=== PATIENT | male | born 1995 | race Caucasian/White ===

== ENCOUNTER 2020-04-13 14:18 | Inpatient (IN) | payer OTHER ==
[~2020-04-13] VITALS: Ht 172.7 cm; Wt 75.0 kg
[2020-04-13 15:41] LABS: HEMATOCRIT 44.4 % (42.0-52.0); HEMOGLOBIN 14.9 g/dl (13.5-17.5); MEAN CORPUSCULAR HEMOGLOBIN 29.4 pg (27.0-33.0); MEAN CORPUSCULAR HGB CONC 33.6 g/dl (32.0-36.5); MEAN CORPUSCULAR VOLUME 87.6 fl (80.0-96.0); PLATELET COUNT, AUTOMATED 197 10^3/uL (150-450); RED BLOOD COUNT 5.07 10^6/uL (4.30-6.10); WHITE BLOOD COUNT 7.5 10^3/uL (4.0-10.0)
[2020-04-13 16:17] LABS: ACETAMINOPHEN LEVEL < 2.0 UG/ML (10.0-30.0); ALBUMIN 4.6 GM/DL (3.2-5.2); ALT/SGPT 19 U/L (12-78); BILIRUBIN,DIRECT 0.1 MG/DL (0.0-0.2); BILIRUBIN,TOTAL 0.4 MG/DL (0.2-1.0); BLOOD UREA NITROGEN 16 MG/DL (7-18); CALCIUM LEVEL 9.2 MG/DL (8.5-10.1); CARBON DIOXIDE LEVEL 29 MEQ/L (21-32); CHLORIDE LEVEL 105 MEQ/L (98-107); CREATININE FOR GFR 0.97 MG/DL (0.70-1.30); ETHYL ALCOHOL (ETHANOL) < 0.003 % (0.000-0.010); GLOMERULAR FILTRATION RATE > 60.0 (>60); GLUCOSE, FASTING 99 MG/DL (70-100); POTASSIUM SERUM 3.9 MEQ/L (3.5-5.1); SALICYLATE LEVEL < 1.7 MG/DL (5.0-30.0); SODIUM LEVEL 140 MEQ/L (136-145); TOTAL PROTEIN 7.8 GM/DL (6.4-8.2)
[2020-04-13 18:33] LABS: RSV AMPLIFICATION NEGATIVE (NEGATIVE)
[2020-04-13 18:47] LABS: AMPHETAMINES LEVEL URINE NEGATIVE (NEGATIVE); BARBITURATES URINE NEGATIVE (NEGATIVE); BENZODIAZEPINES URINE NEGATIVE (NEGATIVE); CANNABINOIDS URINE NEGATIVE (NEGATIVE); COCAINE METABOLITE URINE NEGATIVE (NEGATIVE); METHADONE URINE NEGATIVE (NEGATIVE); OPIATES URINE NEGATIVE (NEGATIVE); PHENCYCLIDINE URINE NEGATIVE (NEGATIVE)
[2020-04-13] MEDS ORDERED: MAALOX 30 ML SUSP *UDC PO PRN (21:00)
[2020-04-13] MEDS ORDERED: MOM 30ML SUSPENSION UDC PO PRN (21:00)
[2020-04-13] MEDS ORDERED: ACETAMINOPHEN TAB 650MG DOSE (2X325MG) PO PRN (21:00)
[2020-04-13] MEDS ORDERED: hydrOXYzine 25 MG TAB PO PRN (21:00)
[2020-04-13] MEDS ORDERED: OLANZapine ORAL DISINTEGRATING TAB 5MG PO PRN (21:00)
[2020-04-14 01:51] VITALS: BP 156/96
[2020-04-14] MEDS: SERTRALINE HCL 50 MG TAB PO SCH ×2 (09:00→15:44)
--- NOTE | 2020-04-14 09:19 | HPE ---
HISTORY AND PHYSICAL DATE OF ADMISSION: 04/13/2020 HISTORY OF PRESENT ILLNESS: This is a hospitalist generated history and physical for Santi Altamirano, a 24-year-old admitted to the inpatient mental health unit. PAST MEDICAL HISTORY: His past medical history is essentially benign. He has some situational elevation blood pressures at one point, but does not appear to be a diagnosis of hypertension. He has no history of chronic pulmonary, cardiac, gastrointestinal, or genitourinary problems. FAMILY HISTORY: Grandmother had leukemia. Mother had an unspecified tumor. MEDICATIONS: Outpatient none. ALLERGIES: None. SOCIAL HISTORY: Nonsmoker. No alcohol. REVIEW OF SYSTEMS: No chest pain, shortness of breath, rectal bleeding, epistaxis, fever, chills, or night sweats. PHYSICAL EXAMINATION: VITAL SIGNS: Per flow sheet. HEENT: Unremarkable. LUNGS: Clear. HEART: Regular rhythm without murmur. ABDOMEN: Soft and nontender. No masses. No peripheral edema. NEUROLOGIC: Nonfocal. LABORATORY DATA: CBC and CMP all normal. Tox screen negative. IMPRESSION: This is a healthy 24-year-old with no ongoing medical problems that should require hospitalist involvement. Should his health change, please feel free to call.
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
[2020-04-14 16:22] VITALS: BP 115/69
[2020-04-15 06:46] VITALS: BP 107/66
[2020-04-15 07:25] VITALS: BP 113/64
[2020-04-15 07:43] LABS: HEMATOCRIT 42.4 % (42.0-52.0); HEMOGLOBIN 13.7 g/dl (13.5-17.5); MEAN CORPUSCULAR HEMOGLOBIN 28.4 pg (27.0-33.0); MEAN CORPUSCULAR HGB CONC 32.3 g/dl (32.0-36.5); MEAN CORPUSCULAR VOLUME 87.8 fl (80.0-96.0); PLATELET COUNT, AUTOMATED 173 10^3/uL (150-450); RED BLOOD COUNT 4.83 10^6/uL (4.30-6.10); WHITE BLOOD COUNT 4.8 10^3/uL (4.0-10.0)
[2020-04-15 08:04] LABS: CHOLESTEROL RISK RATIO 3.395 (<5)
[2020-04-15] MEDS: SERTRALINE HCL 50 MG TAB PO SCH (09:09)
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
--- NOTE | 2020-04-15 14:34 | ECGEPIP ---
[facility] Test Date: 2020-04-15 Pat Name: HELGA CAIN Department: Room: [place] [address] Gender: Male Pediatric Nephrologist: MATILDE : 1995 Requested By: AMINTA MORENO Order Number: [id number] Reading MD: Dai Casey Measurements Intervals [place] Rate: 73 P: 49 MN: 164 QRS: 65 QRSD: 96 T: 32 QT: 420 QTc: 462 Interpretive Statements Normal sinus rhythm Nonspecific ST abnormality NO PRIOR Electronically Signed on 04-15-2020 14:34:20 EST by Dai Casey
[2020-04-15] MEDS ORDERED: SERTRALINE HCL 25 MG TABLET PO ONE (15:00)
[2020-04-15 16:23] VITALS: BP 126/75
[2020-04-16 07:08] VITALS: BP 105/65
[2020-04-16] MEDS: SERTRALINE 100 MG TAB PO SCH (08:45)
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
[2020-04-16 18:00] VITALS: BP 120/72
[2020-04-16] MEDS: traZODone 50 MG TAB PO PRN (20:28)
[2020-04-16] MEDS: OLANZapine 2.5MG TABLET PO SCH (20:28)
[2020-04-17 06:58] VITALS: BP 108/67
[2020-04-17] MEDS: SERTRALINE 100 MG TAB PO SCH (09:13)
--- NOTE | 2020-04-17 11:40 | MHIPNPDOC ---
[facility] Progress Note Progress Note DATE OF SERVICE: 04/17/20 HISTORY: Patient states she is in constant sadness and constant darkness. He continues to repeat numerous times that he is not fulfilled and that he should be serving people and GOD. He feels he needs to be a service to others and that he is tearing himself apart by being trained to kill his speech is somewhat circumferential. He states he can't do things other than read the Bible and think about serving people and God. He states he is not doing any thing fulfilling. He's never had a job. He joined the [employer], hoping that would give him purpose. He wants a career that serves people and GOD. He states he'll have to talk to his unit about doing a position which she is able to serve people and God. Slow and not beneficial to the [employer] and that he is always the slowest, and he is worried about him not performing when necessary. He is unable to complete assignments and is always anxious. VITAL SIGNS: See below. NEW TEST RESULTS: None. CURRENT MEDICATIONS: See below. MENTAL STATUS EXAMINATION: Patient is a.24-year old male, who is anxious and preoccupied and his speech, repetitive and preoccupied with his purpose. Speech: Is repetitive Language skills are, intact. Thought processes including: As above. Thought content: As above. Abstract reasoning, and computation: Poor. Abstraction. Description of associations:. No loose association. Description of abnormal or psychotic thoughts: Abnormal only and their repetition. Judgment:, Poor. Insight:, Limited. Orientation: 3. Recent and remote memory: Hard to gauge. Attention span and concentration: Predominantly intact. Language:. No gross disturbance. Fund of knowledge: Reasonable. Mood: Anxious. Affect:, Congruent. DIAGNOSES: 1. Anxiety. 2., Schizotypal personality. 3. Stressors of [employer]. ASSESSMENT: As above MANAGEMENT PLAN:. Continue to interview and gain more information. TIME SPENT: 35 minutes. Vital Signs Vital Signs Date Time Temp Pulse Resp B/P (MAP) Pulse Ox O2 Delivery O2 Flow Rate FiO2 04/17/20 06:58 97.8 64 14 108/67 (81) 98 Room Air Current Medications Current Medications Medications (Trade) Dose Ordered Sig/Jyoti Route PRN Reason Start Time Stop Time Status Last Admin Dose Admin Acetaminophen (Tylenol Tab) 650 mg Q6HP PRN PO HEADACHE or DISCOMFORT 04/13/20 21:00 Al Hydrox/Mg Hydrox/Simethicone (Mylanta) 30 ml Q4HP PRN PO HEARTBURN/INDIGESTION 04/13/20 21:00 Home Med (Med Rec Complete!) ASDIRECTED XX 04/13/20 17:45 04/13/20 17:43 DC Hydroxyzine HCl (Atarax) 25 mg Q6HP PRN PO ANXIETY 04/13/20 21:00 Magnesium Hydroxide (Milk Of Magnesia) 30 ml DAILYPRN PRN PO CONSTIPATION 04/13/20 21:00 Olanzapine (ZyPREXA ZYDIS) 5 mg Q6HP PRN PO AGITATION 04/13/20 21:00 Olanzapine (ZyPREXA) 7.5 mg QHS PO 04/16/20 21:00 04/16/20 20:28 Sertraline HCl (Zoloft) 50 mg DAILY PO 04/14/20 09:00 04/15/20 14:13 DC 04/15/20 09:09 Sertraline HCl (Zoloft) 100 mg DAILY PO 04/16/20 09:00 04/17/20 09:13 Trazodone HCl (Desyrel) 50 mg QHSP PRN PO INSOMNIA 04/13/20 21:00 04/16/20 20:28 Allergies Coded Allergies: No Known Allergies (Unverified , 04/13/20) WILLIAM BURNHAM MD Apr 17, 2020 11:40
[2020-04-17 17:50] VITALS: BP 119/72
[2020-04-17] MEDS: OLANZapine 2.5MG TABLET PO SCH (20:52)
[2020-04-18 06:00] VITALS: BP 116/56
[2020-04-18] MEDS: SERTRALINE 100 MG TAB PO SCH (08:32)
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
[2020-04-18 18:02] VITALS: BP 116/70
[2020-04-18] MEDS: traZODone 50 MG TAB PO PRN (20:17)
[2020-04-18] MEDS: OLANZapine 2.5MG TABLET PO SCH (20:17)
[2020-04-19 06:22] VITALS: BP 99/58
[2020-04-19] MEDS: SERTRALINE 100 MG TAB PO SCH (08:58)
--- NOTE | 2020-04-19 11:24 | MHIPNPDOC ---
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 VITAL SIGNS: See below. NEW TEST RESULTS: None. CURRENT MEDICATIONS: See below. MENTAL STATUS EXAMINATION: Patient is a 24-year old male, who is, continues somewhat clearer in his thinking, although he became somewhat tangential and discussed his big ideas for remote-control tanks. Speech: Is no gross disturbance. Language skills are no gross disturbance. Thought processes including: Circular and repetitive. Thought content: As above. Abstract reasoning, and computation: Able to abstract. Description of associations:. No loose associations. Description of abnormal or psychotic thoughts: Abnormal thinking in that he is repetitive without recognizing. Judgment: Poor. Insight:, Poor. Orientation: 3. Recent and remote memory: Intact. Attention span and concentration: Intact. Language:. No disturbance. Fund of knowledge: Reasonable. Mood: Euthymic. Affect:, Congruent. DIAGNOSES: 1. Major depressive illness. 2., None. 3. None ASSESSMENT: As above MANAGEMENT PLAN: Continue to observe. Continue to medicate. TIME SPENT: 35 minutes. Vital Signs Vital Signs Date Time Temp Pulse Resp B/P (MAP) Pulse Ox O2 Delivery O2 Flow Rate FiO2 04/19/20 06:22 99.0 60 16 99/58 (72) 98 Room Air Current Medications Current Medications Medications (Trade) Dose Ordered Sig/Jyoti Route PRN Reason Start Time Stop Time Status Last Admin Dose Admin Acetaminophen (Tylenol Tab) 650 mg Q6HP PRN PO HEADACHE or DISCOMFORT 04/13/20 21:00 Al Hydrox/Mg Hydrox/Simethicone (Mylanta) 30 ml Q4HP PRN PO HEARTBURN/INDIGESTION 04/13/20 21:00 Home Med (Med Rec Complete!) ASDIRECTED XX 04/13/20 17:45 04/13/20 17:43 DC Hydroxyzine HCl (Atarax) 25 mg Q6HP PRN PO ANXIETY 04/13/20 21:00 Cancel Magnesium Hydroxide (Milk Of Magnesia) 30 ml DAILYPRN PRN PO CONSTIPATION 04/13/20 21:00 Olanzapine (ZyPREXA ZYDIS) 5 mg Q6HP PRN PO AGITATION 04/13/20 21:00 Cancel Olanzapine (ZyPREXA) 7.5 mg QHS PO 04/16/20 21:00 04/18/20 20:17 Sertraline HCl (Zoloft) 50 mg DAILY PO 04/14/20 09:00 04/15/20 14:13 DC 04/15/20 09:09 Sertraline HCl (Zoloft) 100 mg DAILY PO 04/16/20 09:00 04/19/20 08:58 Trazodone HCl (Desyrel) 50 mg QHSP PRN PO INSOMNIA 04/13/20 21:00 04/18/20 20:17 Allergies Coded Allergies: No Known Allergies (Unverified , 04/13/20) WILLIAM BURNHAM MD Apr 19, 2020 11:24
[2020-04-19 18:54] VITALS: BP 137/77
[2020-04-19] MEDS: traZODone 50 MG TAB PO PRN (20:56)
[2020-04-19] MEDS: OLANZapine 2.5MG TABLET PO SCH (20:56)
[2020-04-20 06:41] VITALS: BP 101/63
[2020-04-20] MEDS: SERTRALINE 100 MG TAB PO SCH (08:27)
--- NOTE | 2020-04-20 17:25 | MHIPNPDOC ---
[facility] Progress Note Progress Note DATE OF SERVICE: 04/20/20 HISTORY: 24-year-old male, demonstrating, confusion associated with the depression, anxiety. Today he states he feels good, he's been walking the unit. He's been playing chess, he's been thinking a great deal of plans, wanted to return to college but still feels a darkness and sadness about the purpose of his life. He states his mind feels tired like he has become old. He feels he is older than he really is. VITAL SIGNS: See below. NEW TEST RESULTS: None. CURRENT MEDICATIONS: See below. MENTAL STATUS EXAMINATION: Patient is a 24-year old male, who is. Less circular in his speech able to be understood. Speech: Is. No gross disturbance. Language skills are. no gross disturbance. Thought processes including: His ideas for the future. Some apparently grandiose. Thought content: Trying to reestablish his purpose and his concerns of why he has done so poorly and been so confused in the [employer]. Abstract reasoning, and computation: Able to abstract. Description of associations:. No loose association. Description of abnormal or psychotic thoughts: Abnormal thoughts, still being evaluated. Judgment:, Poor. Insight:, Limited. Orientation: 3. Recent and remote memory: Intact. Attention span and concentration:. Intact. Language:. No gross disturbance. Fund of knowledge: Reasonable. Mood: Good. Affect: Neutral. DIAGNOSES: 1. Schizotypal disorder. 2., Depression. 3. None ASSESSMENT: As above MANAGEMENT PLAN:, Continue observation and medication. TIME SPENT: 35 minutes. Vital Signs Vital Signs Date Time Temp Pulse Resp B/P (MAP) Pulse Ox O2 Delivery O2 Flow Rate FiO2 04/20/20 06:41 97.9 56 16 101/63 (76) 97 Room Air Current Medications Current Medications Medications (Trade) Dose Ordered Sig/Jyoti Route PRN Reason Start Time Stop Time Status Last Admin Dose Admin Acetaminophen (Tylenol Tab) 650 mg Q6HP PRN PO HEADACHE or DISCOMFORT 04/13/20 21:00 Al Hydrox/Mg Hydrox/Simethicone (Mylanta) 30 ml Q4HP PRN PO HEARTBURN/INDIGESTION 04/13/20 21:00 Home Med (Med Rec Complete!) ASDIRECTED XX 04/13/20 17:45 04/13/20 17:43 DC Hydroxyzine HCl (Atarax) 25 mg Q6HP PRN PO ANXIETY 04/13/20 21:00 Cancel Magnesium Hydroxide (Milk Of Magnesia) 30 ml DAILYPRN PRN PO CONSTIPATION 04/13/20 21:00 Olanzapine (ZyPREXA ZYDIS) 5 mg Q6HP PRN PO AGITATION 04/13/20 21:00 Cancel Olanzapine (ZyPREXA) 7.5 mg QHS PO 04/16/20 21:00 04/19/20 20:56 Sertraline HCl (Zoloft) 50 mg DAILY PO 04/14/20 09:00 04/15/20 14:13 DC 04/15/20 09:09 Sertraline HCl (Zoloft) 100 mg DAILY PO 04/16/20 09:00 04/20/20 08:27 Trazodone HCl (Desyrel) 50 mg QHSP PRN PO INSOMNIA 04/13/20 21:00 04/19/20 20:56 Allergies Coded Allergies: No Known Allergies (Unverified , 04/13/20) WILLIAM BURNHAM MD Apr 20, 2020 17:25
[2020-04-20] MEDS: OLANZapine 2.5MG TABLET PO SCH (21:06)
[2020-04-20] MEDS: traZODone 50 MG TAB PO PRN (21:06)
[2020-04-21 07:09] VITALS: BP 167/58
[2020-04-21] MEDS: SERTRALINE 100 MG TAB PO SCH (09:48)
--- NOTE | 2020-04-21 16:22 | MHIPNPDOC ---
[facility] Progress Note Progress Note DATE OF SERVICE: 04/21/20 HISTORY: Patient continues to have clearer thoughts with improved affect and less complaints of confusion. VITAL SIGNS: See below. NEW TEST RESULTS: . CURRENT MEDICATIONS: See below. MENTAL STATUS EXAMINATION: Patient is a, 24-year old male, who is, admitted with confusion, mormonism concerns ambivalence. Speech: Is clear. Language skills are as disturbance. Thought processes including:. No gross disturbance. Thought content:. Insight improving. Abstract reasoning, and computation: Ability to abstract. Description of associations: Loose association. Description of abnormal or psychotic thoughts:, Less circular thinking. Judgment: Fair. Insight:, Limited. Orientation: 3. Recent and remote memory: Intact. Attention span and concentration:. No gross disturbance. Language:. No gross disturbance. Fund of knowledge: Reasonable. Mood: Improved. Affect: Brightening. DIAGNOSES: 1. Schizoaffective disorder. 2. None. 3. ASSESSMENT: As above MANAGEMENT PLAN:. Continue observation and medication. TIME SPENT: 30 minutes. Vital Signs Vital Signs Date Time Temp Pulse Resp B/P (MAP) Pulse Ox O2 Delivery O2 Flow Rate FiO2 04/21/20 09:46 Room Air 04/21/20 07:09 97.9 56 18 167/58 (94) 96 Current Medications Current Medications Medications (Trade) Dose Ordered Sig/Jyoti Route PRN Reason Start Time Stop Time Status Last Admin Dose Admin Acetaminophen (Tylenol Tab) 650 mg Q6HP PRN PO HEADACHE or DISCOMFORT 04/13/20 21:00 Al Hydrox/Mg Hydrox/Simethicone (Mylanta) 30 ml Q4HP PRN PO HEARTBURN/INDIGESTION 04/13/20 21:00 Home Med (Med Rec Complete!) ASDIRECTED XX 04/13/20 17:45 04/13/20 17:43 DC Hydroxyzine HCl (Atarax) 25 mg Q6HP PRN PO ANXIETY 04/13/20 21:00 Cancel Magnesium Hydroxide (Milk Of Magnesia) 30 ml DAILYPRN PRN PO CONSTIPATION 04/13/20 21:00 Olanzapine (ZyPREXA ZYDIS) 5 mg Q6HP PRN PO AGITATION 04/13/20 21:00 Cancel Olanzapine (ZyPREXA) 7.5 mg QHS PO 04/16/20 21:00 04/20/20 21:06 Sertraline HCl (Zoloft) 50 mg DAILY PO 04/14/20 09:00 04/15/20 14:13 DC 04/15/20 09:09 Sertraline HCl (Zoloft) 100 mg DAILY PO 04/16/20 09:00 04/21/20 09:48 Trazodone HCl (Desyrel) 50 mg QHSP PRN PO INSOMNIA 04/13/20 21:00 04/20/20 21:06 Allergies Coded Allergies: No Known Allergies (Unverified , 04/13/20) WILLIAM BURNHAM MD Apr 21, 2020 16:22
[2020-04-21 19:16] VITALS: BP 135/87
[2020-04-21] MEDS: traZODone 50 MG TAB PO PRN (20:11)
[2020-04-21] MEDS: OLANZapine 2.5MG TABLET PO SCH (20:12)
[2020-04-22 06:00] VITALS: BP 109/59
[2020-04-22] MEDS: SERTRALINE 100 MG TAB PO SCH (09:29)
[2020-04-22 18:08] VITALS: BP 139/75
[2020-04-22] MEDS: OLANZapine 2.5MG TABLET PO SCH (20:18)
[2020-04-22] MEDS: traZODone 50 MG TAB PO PRN (20:18)
[2020-04-23 07:09] VITALS: BP 111/66
[2020-04-23] MEDS: SERTRALINE 100 MG TAB PO SCH (08:56)
--- NOTE | 2020-04-23 15:39 | MHIPNPDOC ---
[facility] Progress Note Progress Note DATE OF SERVICE: 04/23/20 HISTORY: 24-year-old male with significant confusion, much scientologist thoughts about Satan. 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 He finally admitted that his way of thinking, would make returning to his previous assignments difficult. He seems to be adjusting well with medication, but his scientologist preoccupation and his existential questions remain his preoccupation and distraction.Difficult to get to point of his thought. Circumferential VITAL SIGNS: See below. NEW TEST RESULTS: None. CURRENT MEDICATIONS: See below. MENTAL STATUS EXAMINATION: Patient is a. 24-year old male, who is. Not suicidal, but still communicates in a circular manner and continues to focus on scientologist and existential preoccupation. Speech: Is. No gross disturbance. Language skills are no gross disturbance. Thought processes including: No gross disturbance. Thought content: Restorationist Satan and God man's purpose. On earth. Abstract reasoning, and computation: Able to abstract. Description of associations: No loose association. Description of abnormal or psychotic thoughts: Abnormal thought as described. Judgment: Poor. Insight: Poor Orientation: 3. Recent and remote memory: Intact. Attention span and concentration:. Concentration affected by circumferential scientologist thinking. Language:. No gross disturbance. Fund of knowledge: Reasonable. Mood: Euthymic. Affect:, Neutral. DIAGNOSES: 1. Schizotypal personality. 2. None. 3. None. ASSESSMENT:. Will discuss with manufacturing planner and team as well as [employer] that this young man is not capable of his present duties MANAGEMENT PLAN: As above. TIME SPENT:, 30 minutes. Vital Signs Vital Signs Date Time Temp Pulse Resp B/P (MAP) Pulse Ox O2 Delivery O2 Flow Rate FiO2 04/23/20 07:09 99.0 84 15 111/66 (81) 95 Room Air Current Medications Current Medications Medications (Trade) Dose Ordered Sig/Jyoti Route PRN Reason Start Time Stop Time Status Last Admin Dose Admin Acetaminophen (Tylenol Tab) 650 mg Q6HP PRN PO HEADACHE or DISCOMFORT 04/13/20 21:00 Al Hydrox/Mg Hydrox/Simethicone (Mylanta) 30 ml Q4HP PRN PO HEARTBURN/INDIGESTION 04/13/20 21:00 Home Med (Med Rec Complete!) ASDIRECTED XX 04/13/20 17:45 04/13/20 17:43 DC Hydroxyzine HCl (Atarax) 25 mg Q6HP PRN PO ANXIETY 04/13/20 21:00 Cancel Magnesium Hydroxide (Milk Of Magnesia) 30 ml DAILYPRN PRN PO CONSTIPATION 04/13/20 21:00 Olanzapine (ZyPREXA ZYDIS) 5 mg Q6HP PRN PO AGITATION 04/13/20 21:00 Cancel Olanzapine (ZyPREXA) 7.5 mg QHS PO 04/16/20 21:00 04/22/20 20:18 Sertraline HCl (Zoloft) 50 mg DAILY PO 04/14/20 09:00 04/15/20 14:13 DC 04/15/20 09:09 Sertraline HCl (Zoloft) 100 mg DAILY PO 04/16/20 09:00 04/23/20 08:56 Trazodone HCl (Desyrel) 50 mg QHSP PRN PO INSOMNIA 04/13/20 21:00 04/22/20 20:18 Allergies Coded Allergies: No Known Allergies (Unverified , 04/13/20) WILLIAM BURNHAM MD Apr 23, 2020 15:39
[2020-04-23 16:27] VITALS: BP 135/90
[2020-04-23] MEDS: OLANZapine 2.5MG TABLET PO SCH (20:29)
[2020-04-23] MEDS: traZODone 50 MG TAB PO PRN (20:29)
[2020-04-24 06:44] VITALS: BP 100/66
[2020-04-24] MEDS: SERTRALINE 100 MG TAB PO SCH (09:15)
[2020-04-24] MEDS ORDERED: hydrOXYzine 25 MG TAB PO PRN (12:20)
--- NOTE | 2020-04-24 16:04 | MHIPNPDOC ---
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 VITAL SIGNS: See below. NEW TEST RESULTS: None. CURRENT MEDICATIONS: See below. MENTAL STATUS EXAMINATION: Patient is a 24-year old male, who is, demonstrating circular thinking associated with some paranoia, significant religiosity and social awkwardness. Speech: Is circular thinking. Language skills are. No gross disturbance. Thought processes including: Circular thinking concerning orthodoxy man's purpose on earth. Patient's inability to function because he is not fulfilling God's purpose. Thought content: As above. Abstract reasoning, and computation: Able to abst ract. Description of associations:. No loose association. Description of abnormal or psychotic thoughts: Abnormal thinking with regards to circular thinking circumferential speech and thinking, religiosity, associated with poor social skills and inability to perform tasks. Judgment: Poor. Insight:, Limited. Orientation: 3. Recent and remote memory: Intact. Attention span and concentration: Poor. Language: Circumferential. Fund of knowledge:, Limited. Mood: Anxious. Affect:, Congruent. DIAGNOSES: 1. Schizotypal personality. 2. General anxiety . . 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 TIME SPENT: 20 minutes. Vital Signs Vital Signs Date Time Temp Pulse Resp B/P (MAP) Pulse Ox O2 Delivery O2 Flow Rate FiO2 04/24/20 06:44 97.7 76 16 100/66 (77) 100 Room Air Current Medications Current Medications Medications (Trade) Dose Ordered Sig/Jyoti Route PRN Reason Start Time Stop Time Status Last Admin Dose Admin Acetaminophen (Tylenol Tab) 650 mg Q6HP PRN PO HEADACHE or DISCOMFORT 04/13/20 21:00 Al Hydrox/Mg Hydrox/Simethicone (Mylanta) 30 ml Q4HP PRN PO HEARTBURN/INDIGESTION 04/13/20 21:00 Home Med (Med Rec Complete!) ASDIRECTED XX 04/13/20 17:45 04/13/20 17:43 DC Hydroxyzine HCl (Atarax) 25 mg Q6HP PRN PO ANXIETY 04/24/20 12:20 Hydroxyzine HCl (Atarax) 25 mg Q6HP PRN PO ANXIETY 04/13/20 21:00 Cancel Magnesium Hydroxide (Milk Of Magnesia) 30 ml DAILYPRN PRN PO CONSTIPATION 04/13/20 21:00 Olanzapine (ZyPREXA ZYDIS) 5 mg Q6HP PRN PO AGITATION 04/13/20 21:00 Cancel Olanzapine (ZyPREXA) 7.5 mg QHS PO 04/16/20 21:00 04/23/20 20:29 Sertraline HCl (Zoloft) 50 mg DAILY PO 04/14/20 09:00 04/15/20 14:13 DC 04/15/20 09:09 Sertraline HCl (Zoloft) 100 mg DAILY PO 04/16/20 09:00 04/24/20 09:15 Trazodone HCl (Desyrel) 50 mg QHSP PRN PO INSOMNIA 04/13/20 21:00 04/23/20 20:29 Allergies Coded Allergies: No Known Allergies (Unverified , 04/13/20) WILLIAM BURNHAM MD Apr 24, 2020 16:04
[2020-04-24 16:51] VITALS: BP 140/85
[2020-04-24] MEDS: OLANZapine 2.5MG TABLET PO SCH (20:12)
[2020-04-24] MEDS: traZODone 50 MG TAB PO PRN (20:12)
[2020-04-25 06:43] VITALS: BP 106/62
[2020-04-25] MEDS: SERTRALINE 100 MG TAB PO SCH (08:16)
--- NOTE | 2020-04-25 12:12 | MHIPNPDOC ---
[facility] Progress Note Progress Note DATE OF SERVICE: 04/25/20 HISTORY: 24-year-old male with difficulties in the [employer] inability to perform tasks due to thinking process. VITAL SIGNS: See below. NEW TEST RESULTS:. None. CURRENT MEDICATIONS: See below. 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 His communication skills have improved. Speech: Is. No gross disturbance. Language skills are. No gross disturbance. Thought processes including:. No gross disturbance. Thought content: Robots,tanks. Abstract reasoning, and computation: Circular thought faith preoccupation. Description of associations:. No loose association. Description of abnormal or psychotic thoughts: Abnormal thought as described. Judgment: Poor. Insight:, Limited. Orientation: 3. Recent and remote memory: Intact. Attention span and concentration: Intact. Language:. No gross disturbance. Fund of knowledge: Reasonable. Mood: Euthymic. Affect:, Congruent. DIAGNOSES: 1. Schizotypal personality disorder. 2., Stressors of assignment 3.. ASSESSMENT:. Patient was unable to complete assignments in the as he was preoccupied with faith issues and inability to focus, as his thoughts were circular MANAGEMENT PLAN:, Will discharge to [employer] with recommendations. TIME SPENT: 20 minutes. Vital Signs Vital Signs Date Time Temp Pulse Resp B/P (MAP) Pulse Ox O2 Delivery O2 Flow Rate FiO2 04/25/20 09:11 Room Air 04/25/20 06:43 98.8 69 16 106/62 (77) 98 Current Medications Current Medications Medications (Trade) Dose Ordered Sig/Jyoti Route PRN Reason Start Time Stop Time Status Last Admin Dose Admin Acetaminophen (Tylenol Tab) 650 mg Q6HP PRN PO HEADACHE or DISCOMFORT 04/13/20 21:00 Al Hydrox/Mg Hydrox/Simethicone (Mylanta) 30 ml Q4HP PRN PO HEARTBURN/INDIGESTION 04/13/20 21:00 Home Med (Med Rec Complete!) ASDIRECTED XX 04/13/20 17:45 04/13/20 17:43 DC Hydroxyzine HCl (Atarax) 25 mg Q6HP PRN PO ANXIETY 04/24/20 12:20 Hydroxyzine HCl (Atarax) 25 mg Q6HP PRN PO ANXIETY 04/13/20 21:00 Cancel Magnesium Hydroxide (Milk Of Magnesia) 30 ml DAILYPRN PRN PO CONSTIPATION 04/13/20 21:00 Olanzapine (ZyPREXA ZYDIS) 5 mg Q6HP PRN PO AGITATION 04/13/20 21:00 Cancel Olanzapine (ZyPREXA) 7.5 mg QHS PO 04/16/20 21:00 04/24/20 20:12 Sertraline HCl (Zoloft) 50 mg DAILY PO 04/14/20 09:00 04/15/20 14:13 DC 04/15/20 09:09 Sertraline HCl (Zoloft) 100 mg DAILY PO 04/16/20 09:00 04/25/20 08:16 Trazodone HCl (Desyrel) 50 mg QHSP PRN PO INSOMNIA 04/13/20 21:00 04/24/20 20:12 Allergies Coded Allergies: No Known Allergies (Unverified , 04/13/20) WILLIAM BURNHAM MD Apr 25, 2020 12:12
[2020-04-25 16:46] VITALS: BP 118/72
[2020-04-25] MEDS: traZODone 50 MG TAB PO PRN (20:14)
[2020-04-25] MEDS: OLANZapine 2.5MG TABLET PO SCH (20:15)
[2020-04-26 06:16] VITALS: BP 115/70
[2020-04-26] MEDS: SERTRALINE 100 MG TAB PO SCH (08:11)
[2020-04-26] MEDS ORDERED: OLAN2.5T25 PO (09:03)
[2020-04-26] MEDS ORDERED: HYDR-3363 PO (09:03)
[2020-04-26] MEDS ORDERED: ZOLO100T PO (09:03)
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
== END 2020-04-26 12:50 | disposition home or self-care (01) | DRG 883 ==
LOC: M ED 14:18 → M ED INP 20:57 → M PSY 04-14 01:27
PROVIDERS: ADMIT Psychiatry & Neurology Psychiatry; ATTEND Psychiatry & Neurology Child & Adolescent Psychiatry
DX: F21 Schizotypal disorder (principal); F43.10 Post-traumatic stress disorder, unspecified; F43.22 Adjustment disorder with anxiety; Z62.810 Personal history of physical and sexual abuse in childhood; Z62.811 Personal history of psychological abuse in childhood; Z81.8 Family history of other mental and behavioral disorders; Z20.822 Contact with and (suspected) exposure to COVID-19